=== PATIENT | male | born 1950 | race Two or more races ===

== ENCOUNTER 2018-02-04 12:48 | Emergency (ER) | payer MEDICARE, MEDICAID ==
[2018-02-04 15:42] LABS: ADD MAN DIFF? NO
[2018-02-04 15:45] LABS: BASOPHILS % 0.7 % (0.0-2.0); EOSINOPHILS # 0.5 10^3/ul (0.0-0.5); EOSINOPHILS % 8.3 % (0.0-7.0); HEMATOCRIT 28.2 % (42.0-52.0); HEMOGLOBIN 9.2 g/dl (14.0-18.0); LYMPHOCYTES # 1.5 10^3/ul (0.8-2.9); LYMPHOCYTES % 25.2 % (15.0-51.0); MEAN CORPUSCULAR HEMOGLOBIN 28.8 pg (29.0-33.0); MEAN CORPUSCULAR HGB CONC 32.6 g/dl (32.0-37.0); MEAN CORPUSCULAR VOLUME 88.4 fl (82.0-101.0); MEAN PLATELET VOLUME 11.5 fl (7.4-10.4); MONOCYTE # 0.6 10^3/ul (0.3-0.9); MONOCYTES % 10.2 % (0.0-11.0); NEUTROPHIL # 3.3 10^3/ul (1.6-7.5); NEUTROPHILS % 55.1 % (39.0-77.0); PLATELET COUNT 260 10^3/UL (140-415); RED BLOOD COUNT 3.19 10^6/ul (4.70-6.10); RED CELL DISTRIBUTION WIDTH 14.3 % (11.5-14.5)
[2018-02-04 15:45] LABS: WHITE BLOOD COUNT 5.9 10^3/ul (4.8-10.8)
[2018-02-04 16:05] LABS: ANION GAP 17 (8-16); BLOOD UREA NITROGEN 65 mg/dl (7-20); CALCIUM 9.3 mg/dl (8.4-10.2); CARBON DIOXIDE 26 mmol/L (21-31); CHLORIDE 110 mmol/L (97-110); CREATININE 2.68 mg/dl (0.61-1.24); GLUCOSE 74 mg/dl (70-220); INR 1.15; MAGNESIUM 2.7 mg/dl (1.7-2.5); POTASSIUM 4.7 mmol/L (3.5-5.1); PROTIME 14.9 Sec (11.9-14.9); PT RATIO 1.2; SODIUM 148 mmol/L (135-144)
[2018-02-04 16:22] LABS: TROPONIN-I < 0.012 ng/ml (0.00-0.12)
[2018-02-04] MEDS: SOD CHLORIDE 0.9% 500 ML IV (17:18)
== END 2018-02-04 18:30 | disposition home or self-care (01) ==
LOC: E/R 18:30
DX: R00.1 Bradycardia, unspecified (principal); D64.9 Anemia, unspecified; I10 Essential (primary) hypertension; E11.9 Type 2 diabetes mellitus without complications; I25.10 Atherosclerotic heart disease of native coronary artery without angina pectoris; N17.9 Acute kidney failure, unspecified; Z79.84 Long term (current) use of oral hypoglycemic drugs; Z87.891 Personal history of nicotine dependence
CPT/HCPCS: 36415; 71045; 80048; 82962; 83735; 84443; 84484; 85025; 85610; 85730; 93005; 99285-25

== ENCOUNTER 2018-07-26 13:41 | Emergency (ER) | payer OTHER, MEDICARE | END 2018-07-26 16:50 | disposition home or self-care (01) | LOC: E/R 13:41 | DX: S90.821A Blister (nonthermal), right foot, initial encounter (principal); I10 Essential (primary) hypertension; E11.9 Type 2 diabetes mellitus without complications; X58.XXXA Exposure to other specified factors, initial encounter; Y92.9 Unspecified place or not applicable; Z79.84 Long term (current) use of oral hypoglycemic drugs | CPT/HCPCS: 99283 ==